=== PATIENT | female | born 1940 | race Caucasian/White ===

== ENCOUNTER 2017-03-31 09:38 | Emergency (ER) | payer MEDICAID ==
[~2017-03-31] VITALS: Ht 160 cm; Wt 73.9 kg
[2017-03-31] MEDS ORDERED: LEVOTHYROXINE75 MCG PO (10:01)
[2017-03-31] MEDS ORDERED: SIMVASTATIN20 MG PO (10:01)
[2017-03-31] MEDS ORDERED: ASPIR 8181 MG PO (10:01)
[2017-03-31] MEDS ORDERED: AMLODIPINE BESY10 MG PO (10:02)
[2017-03-31] MEDS ORDERED: BONIVA150 MG PO (10:02)
== END 2017-03-31 11:38 | disposition home or self-care (01) ==
LOC: ED 09:38
PROC: 0HQFXZZ Repair Right Hand Skin, External Approach (ICD-10-PCS; principal; 2017-03-31)
DX: S51.011A Laceration without foreign body of right elbow, initial encounter (principal); Z87.891 Personal history of nicotine dependence; Z90.710 Acquired absence of both cervix and uterus; Z90.49 Acquired absence of other specified parts of digestive tract; Z98.890 Other specified postprocedural states; Z88.8 Allergy status to other drugs, medicaments and biological substances; Z79.82 Long term (current) use of aspirin; W01.0XXA Fall on same level from slipping, tripping and stumbling without subsequent striking against object, initial encounter; Z79.899 Other long term (current) drug therapy
CPT/HCPCS: 12002; 99282